=== PATIENT | female | born 1980 | race American Indian/Alaskan Native ===

== ENCOUNTER 2018-04-02 21:44 | Emergency (ER) | payer SELFPAY ==
[2018-04-02 22:48] LABS: Basophils % (Auto) 0.5 % (0.0-1.8); Eosinophils % (Auto) 0.2 % (0.0-4.3); Hematocrit 38.3 % (30.3-42.9); Hemoglobin 12.5 gm/dl (10.1-14.3); Lymphocytes # (Auto) 2.2 K/mm3 (1.2-5.4); Lymphocytes % (Auto) 21.6 % (13.4-35.0); Mean Corpuscular HGB Conc 33 % (30-34); Mean Corpuscular Hemoglobin 27 pg (28-32); Mean Corpuscular Volume 84 fl (79-97); Monocytes # (Auto) 0.5 K/mm3 (0.0-0.8); Monocytes % (Auto) 5.1 % (0.0-7.3); Platelet Count 330 K/mm3 (140-440); Red Blood Count 4.59 M/mm3 (3.65-5.03); Red Cell Distribution Width 16.9 % (13.2-15.2)
[2018-04-02 22:55] LABS: Bilirubin,Urine NEG (Negative); Blood,Urine LG (Negative); Color,Urine Yellow (Yellow); Mucus,Urine FEW /HPF; Protein,Urine <15 mg/dL mg/dL (Negative); Urobilinogen,Urine < 2.0 mg/dL (<2.0)
--- NOTE | 2018-04-03 01:04 | Emergency Department Report ---
ED Female HPI - General Chief complaint: Vaginal Bleeding Stated complaint: VAG BLEEDING; 6WKS GEST Time Seen by Provider: 04/03/18 00:09 Source: patient, family Mode of arrival: Ambulatory Limitations: No Limitations - History of Present Illness Initial comments: Ms. Robles is a very pleasant with approximately 6 weeks . Last menstrual period 02/16/2018. She discovered through home test 2 days ago that she was . She had vaginal spotting on yesterday. She has had continued vaginal bleeding slightly heavier. She had pelvic pressure and cramping. 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 One vaginal delivery. One C- section. She is here with her fianc who is at the bedside. MD Complaint: vaginal bleeding -: Gradual, days(s) (1) Severity scale (0 -10): 3 Quality: cramping Consistency: constant Improves with: none Worsens with: none Are you Now?: Yes Associated Symptoms: abdominal pain, other (pelvic pressure) - Related Data Allergies Allergy/AdvReac Type Severity Reaction Status Date / Time No Known Allergies Allergy Verified 04/02/18 21:55 ED Review of Systems ROS: Stated complaint: VAG BLEEDING; 6WKS GEST Other details as noted in HPI Comment: All other systems reviewed and negative Constitutional: denies: fever, malaise Respiratory: denies: cough Cardiovascular: denies: chest pain ED Past Medical Hx - Past Medical History Previous Medical History?: No - Surgical History Past Surgical History?: Yes Additional Surgical History: c section - Social History Smoking Status: Former Smoker Substance Use Type: None ED Physical Exam - General Limitations: No Limitations General appearance: alert, in no apparent distress - Head Head exam: Present: atraumatic, normocephalic - Eye Eye exam: Present: normal appearance. Absent: scleral icterus, conjunctival injection - ENT ENT exam: Present: mucous membranes moist - Neck Neck exam: Present: normal inspection. Absent: tenderness, meningismus - Respiratory Respiratory exam: Present: normal lung sounds bilaterally. Absent: respiratory distress, wheezes, rales, rhonchi - Cardiovascular Cardiovascular Exam: Present: regular rate, normal rhythm, normal heart sounds. Absent: systolic murmur, diastolic murmur, rubs, gallop - GI/Abdominal GI/Abdominal exam: Present: soft, normal bowel sounds. Absent: distended, tenderness, rebound - Extremities Exam Extremities exam: Present: normal inspection - Back Exam Back exam: Present: normal inspection - Neurological Exam Neurological exam: Present: alert, oriented X3 - Psychiatric Psychiatric exam: Present: normal affect, normal mood - Skin Skin exam: Present: warm, dry, intact, normal color. Absent: rash ED Course Vital Signs 04/02/18 21:55 Temperature 98.6 F Pulse Rate 89 Respiratory 16 Rate Blood Pressure 137/92 O2 Sat by Pulse 97 Oximetry ED Medical Decision Making - Lab Data Result diagrams: 04/02/18 22:25 Laboratory Results - last 24 hr 04/02/18 04/02/18 04/02/18 22:25 22:25 22:25 WBC 10.4 RBC 4.59 Hgb 12.5 Hct 38.3 MCV 84 MCH 27 L MCHC 33 RDW 16.9 H Plt Count 330 Lymph % (Auto) 21.6 Gem % (Auto) 5.1 Eos % (Auto) 0.2 Baso % (Auto) 0.5 Lymph # 2.2 Gem # 0.5 Eos # 0.0 Baso # 0.0 Seg Neutrophils % 72.6 H Seg Neutrophils # 7.6 HCG, Quant 4769 H Urine Color Urine Turbidity Urine pH Ur Specific [place] Urine Protein Urine Glucose (UA) Urine Ketones Urine Blood Urine Nitrite Urine Bilirubin Urine Urobilinogen Ur Leukocyte Esterase Urine WBC (Auto) Urine RBC (Auto) U Epithel Cells (Auto) Urine Mucus Blood Type O POSITIVE Antibody Screen Negative 04/02/18 Unknown WBC RBC Hgb Hct MCV MCH MCHC RDW Plt Count Lymph % (Auto) Gem % (Auto) Eos % (Auto) Baso % (Auto) Lymph # Gem # Eos # Baso # Seg Neutrophils % Seg Neutrophils # HCG, Quant Urine Color Yellow Urine Turbidity Clear Urine pH 6.0 Ur Specific [place] 1.012 Urine Protein <15 mg/dl Urine Glucose (UA) Neg Urine Ketones 20 Urine Blood Lg Urine Nitrite Neg Urine Bilirubin Neg Urine Urobilinogen < 2.0 Ur Leukocyte Esterase Neg Urine WBC (Auto) 2.0 Urine RBC (Auto) 6.0 U Epithel Cells (Auto) 3.0 Urine Mucus Few Blood Type Antibody Screen Vital Signs - 24 hr 04/02/18 21:55 Temperature 98.6 F Pulse Rate 89 Respiratory 16 Rate Blood Pressure 137/92 O2 Sat by Pulse 97 Oximetry - Radiology Data Radiology results: report reviewed no IUP - Medical Decision Making Ms. Robles presents with threatened miscarriage vs complete vs early IUP vs ectopic. Rh negative. She is currently taking PVN with folic acid. I recommended return in 2 days for repeat US and HCG Critical care attestation.: If time is entered above; I have spent that time in minutes in the direct care of this critically ill patient, excluding procedure time. ED Disposition Clinical Impression: Threatened miscarriage in early Disposition: DC- TO HOME OR SELFCARE Is pt being admited?: No Does the pt Need Aspirin: No Condition: Stable Instructions: Threatened Miscarriage (ED) Additional Instructions: Please return in 2 days for repeat US and blood test. Time of Disposition: 01:25
--- NOTE | 2018-04-03 01:17 | Ultrasound Report ---
FINAL REPORT EXAM: US OB < = 14 WEEKS FETUS HISTORY: preg, vag bleeding COMPARISON: None available. TECHNIQUE: Several real-time grayscale and color Doppler images were obtained. Transabdominal and transvaginal exam. FINDINGS: The uterus measures 10.9 x 4.7 x 5.0 centimeters. Endometrial stripe measures 14 millimeters. At the anterior body of the lower uterus there is a 1.2 x 0.8 x 1.0 centimeter isoechoic structure with small focus of calcification compatible fibroid. No IUP or adnexal masses are demonstrated. Right ovary measures 3.8 x 2.2 x 2.6 centimeters. Left ovary measures 2.6 x 1.1 x 3.0 centimeters. Within the right ovary there is a mildly complex cystic structure measuring 1.6 x 2.0 x 1.7 centimeters. This may reflect corpus luteum. 1.1 centimeter left ovarian cystic structure. IMPRESSION: No IUP or adnexal masses are demonstrated. Findings could reflect completed . Early live IUP not excluded. Correlation with serial beta HCGs and followup exam is suggested. 2.0 centimeter complex cystic structure in the right ovary which may reflect corpus luteum.
[2018-04-03 02:07] VITALS: BP 132/81
== END 2018-04-03 02:07 | disposition home or self-care (01) ==
LOC: ED 21:44
DX: O20.0 Threatened abortion (principal); Z3A.01 Less than 8 weeks gestation of pregnancy; Z87.891 Personal history of nicotine dependence
CPT/HCPCS: 36415; 76801; 76817; 81001; 84702; 85025; 86850; 86900; 86901; 99284

== ENCOUNTER 2018-04-05 16:07 | Emergency (ER) | payer SELFPAY ==
[2018-04-05 16:40] VITALS: BP 138/88
--- NOTE | 2018-04-05 22:17 | Emergency Department Report ---
ED Medical Clearance HPI - General Chief complaint: Medical Clearance Stated complaint: FOLLOW/UP/ Time Seen by Provider: 04/05/18 21:38 Source: patient Mode of arrival: Ambulatory - History of Present Illness Initial comments: 37-year-old -[place] female returns back to the emergency room as suggested to have her hCG repeated. Patient was seen on Friday04/03/2018 and had a ultrasound in hCG testing for having some vaginal bleeding and abdominal pain. Patient is a correction of her last menstrual period was 02/20/2018. Patient's is having no concerns at this time Allergies/Adverse reactions: Allergies Allergy/AdvReac Type Severity Reaction Status Date / Time No Known Allergies Allergy Verified 04/05/18 16:38 ED Review of Systems ROS: Stated complaint: FOLLOW/UP/ Other details as noted in HPI ED Past Medical Hx - Past Medical History Previous Medical History?: No - Surgical History Additional Surgical History: c section - Social History Smoking Status: Former Smoker Substance Use Type: None ED Physical Exam - General Limitations: No Limitations ED Course Vital Signs 04/05/18 16:38 Temperature 98.8 F Pulse Rate 66 Respiratory 18 Rate Blood Pressure 138/88 O2 Sat by Pulse 99 Oximetry ED Medical Decision Making - Medical Decision Making Patient was evaluated by this provider fast track. Discussed with patient that her numbers have doubled for her hormonal levels. Discussed patient that this is most likely early and that she needs to follow up with the [facility] provider. Discussed the patient that I will refer her to either sliding [facility] in [place] which is where they live near. Patient was very thankful for further results. ED Disposition Clinical Impression: Early stage of Disposition: DC-01 TO HOME OR SELFCARE Is pt being admited?: No Does the pt Need Aspirin: No Condition: Stable Additional Instructions: Please follow-up with [facility] Referrals: PRIMARY CARE, [Primary Care Provider] - 3-5 Days
== END 2018-04-05 21:48 | disposition home or self-care (01) ==
LOC: ED 16:07
DX: O26.891 Other specified pregnancy related conditions, first trimester (principal); R10.2 Pelvic and perineal pain; O20.9 Hemorrhage in early pregnancy, unspecified; Z3A.01 Less than 8 weeks gestation of pregnancy; Z87.891 Personal history of nicotine dependence
CPT/HCPCS: 36415; 84702; 99283

== ENCOUNTER 2018-05-02 23:08 | Emergency (ER) | payer SELFPAY ==
[2018-05-03 02:27] LABS: Hematocrit 36.1 % (30.3-42.9); Hemoglobin 12.1 gm/dl (10.1-14.3); Mean Corpuscular HGB Conc 34 % (30-34); Mean Corpuscular Hemoglobin 29 pg (28-32); Mean Corpuscular Volume 86 fl (79-97); Platelet Count 321 K/mm3 (140-440); Red Blood Count 4.19 M/mm3 (3.65-5.03); Red Cell Distribution Width 17.6 % (13.2-15.2)
[2018-05-03 02:33] LABS: BUN/Creatinine Ratio 13; Blood Urea Nitrogen 5 mg/dL (7-17); Calcium 9.2 mg/dL (8.4-10.2); Hemolysis Index 0
--- NOTE | 2018-05-03 03:23 | Ultrasound Report ---
FINAL REPORT EXAM: US OB < = 14 WEEKS FETUS HISTORY: Vaginal Bleeding 10 weeks TECHNIQUE: Transabdominal imaging was obtained of the pelvis. FINDINGS: The uterus measures 14.2 cm by 5.3 cm x 5.5 cm. The endometrial thickness is 23.8 mm and is heterogeneous. There is no evidence of an intrauterine gestational sac or embryo. There is minimal free fluid in the cul-de-sac. The right ovary is enlarged measuring 6.1 cm x 4.1 cm x 4.1 cm. Within the right ovary is a complex cyst with septations measuring to 2.8 cm in diameter. A gestational sac is not seen. The left ovary is normal size contour and echotexture measuring 2.7 cm by 2.6 cm x 1.6 cm. IMPRESSION: No evidence of an IUP at this time. Thickened endometrium with heterogeneous echotexture. The findings may be on the basis of retained products of conception. Obtaining follow-up serum beta HCG levels is recommended for confirmation. Complex right ovarian cyst with septations measuring 2.8 cm in diameter. Normal-appearing left ovary. Minimal free fluid the pelvis.
--- NOTE | 2018-05-03 03:24 | Ultrasound Report ---
FINAL REPORT EXAM: US OB TRANSVAGINAL HISTORY: Vaginal Bleeding 10 weeks TECHNIQUE: Transvaginal imaging was obtained the pelvis. FINDINGS: The uterus measures 4.2 cm x 5.3 cm x 5.5 cm. The endometrial thickness is 23.8 mm and is heterogeneous. An intrauterine gestational sac and embryo is not seen. There is minimal free fluid in the pelvis. The right ovary is enlarged measuring 6.1 cm x 4.1 cm x 4.1 cm. There is a complex right ovarian cyst with septations measure up to 2.8 cm in diameter. The left ovary is normal in size contour and echotexture measuring 2.7 cm x 2.6 cm x 1.6 cm. IMPRESSION: No evidence of an IUP at this time. Thickened endometrium with heterogeneous echotexture. The findings may represent retained products of conception. Obtaining follow-up beta HCG levels is recommended for confirmation. Enlarged right ovary with complex ovarian cyst with measurements as described. Normal-appearing left ovary.
--- NOTE | 2018-05-03 04:21 | Emergency Department Report ---
ED HPI - General Chief complaint: Vaginal Bleeding Stated complaint: BLOOD CLOT 10 WEEKS Time Seen by Provider: 05/03/18 04:14 Source: patient Mode of arrival: Ambulatory Limitations: No Limitations - History of Present Illness Initial comments: Patient is a 37-year-old female that presents emergency room with vaginal bleeding and passing of tissue and clots. Patient states that she is having mild cramps and mild pelvic pressure at a 3 out of 10. Patient states the pain is nonradiating. Patient is currently 10 weeks and has not had any care. Patient is a . Patient states she has had 2 miscarriages in the past and states the symptoms are similar to her previous miscarriages. Patient states she has been bleeding since 5 weeks. Patient states she was evaluated here for vaginal bleeding and instructed to see OR ASSISTANT but never went to see an OR ASSISTANT for care. Patient states this time is that of just normal spotting and bleeding like in the past she has no passing clots and tissue. Patient states she was seen here for her beta hCG checks and that her beta having going up. Patient denies other physical symptoms. Patient denies chest pain. Patient denies shortness of breath. Patient denies fever and chills. MD Complaint: vaginal bleeding -: Sudden Location: pelvis Radiation: none Severity: mild Severity scale (0 -10): 3 Quality: dull, other (pressure pressure) Consistency: constant Improves with: none Worsens with: none Associated symptoms: vaginal bleeding. denies: nausea/vomiting, vaginal discharge, dysuria, headache, vision changes, malaise, dysparuenia, rash, seizure, shortness of breath, syncope, weakness Vaginal bleeding: clots :: Yes OB History - Previous Pregnancies: miscarriage Pre- care: none - Related Data Allergies Allergy/AdvReac Type Severity Reaction Status Date / Time No Known Allergies Allergy Verified 04/05/18 16:38 ED Review of Systems ROS: Stated complaint: BLOOD CLOT 10 WEEKS Other details as noted in HPI Constitutional: denies: chills, fever Eyes: denies: eye pain, eye discharge, vision change ENT: denies: ear pain, throat pain Respiratory: denies: cough, shortness of breath, wheezing Cardiovascular: denies: chest pain, palpitations Endocrine: no symptoms reported Gastrointestinal: denies: abdominal pain, nausea, diarrhea Genitourinary: denies: urgency, dysuria, discharge Musculoskeletal: denies: back pain, joint swelling, arthralgia Skin: denies: rash, lesions Neurological: denies: headache, weakness, paresthesias Psychiatric: denies: anxiety, depression Hematological/Lymphatic: denies: easy bleeding, easy bruising ED Past Medical Hx - Past Medical History Previous Medical History?: No - Surgical History Past Surgical History?: Yes Additional Surgical History: c section, Miscarriages x 2 - Family History Family history: no significant - Social History Smoking Status: Former Smoker Substance Use Type: None ED Physical Exam - General Limitations: No Limitations General appearance: alert, in no apparent distress - Head Head exam: Present: atraumatic, normocephalic - Eye Eye exam: Present: normal appearance - ENT ENT exam: Present: mucous membranes moist - Neck Neck exam: Present: normal inspection - Respiratory Respiratory exam: Present: normal lung sounds bilaterally. Absent: respiratory distress - Cardiovascular Cardiovascular Exam: Present: regular rate, normal rhythm. Absent: systolic murmur, diastolic murmur, rubs, gallop - GI/Abdominal GI/Abdominal exam: Present: soft, normal bowel sounds - Extremities Exam Extremities exam: Present: normal inspection - Back Exam Back exam: Present: normal inspection - Neurological Exam Neurological exam: Present: alert, oriented X3 - Psychiatric Psychiatric exam: Present: normal affect, normal mood - Skin Skin exam: Present: warm, dry, intact, normal color. Absent: rash ED Course Vital Signs 05/03/18 05/03/18 05/03/18 01:17 03:51 04:43 Temperature 99.2 F 98.9 F Pulse Rate 84 69 Respiratory 20 20 20 Rate Blood Pressure 172/97 Blood Pressure 133/98 [Left] O2 Sat by Pulse 100 98 98 Oximetry - Reevaluation(s) Reevaluation #1: Discussed all results with patient. 05/03/18 04:22 Reevaluation #2: Discussed all results with patient. Discussed plan of admission with patient. Patient agrees with plan of care and admission. 05/03/18 05:37 - Consultations Consultation #1: Discussed case with Dr. Castaneda, OR ASSISTANT. Dr. Castaneda agrees to admit patient and take patient for a D&C. Dr. Castaneda to assume care. Patient to remain nothing by mouth 05/03/18 05:30 ED Medical Decision Making - Lab Data Result diagrams: 05/03/18 01:48 05/03/18 01:48 - Radiology Data Radiology results: report reviewed FINAL REPORT EXAM: US OB TRANSVAGINAL HISTORY: Vaginal Bleeding 10 weeks TECHNIQUE: Transvaginal imaging was obtained the pelvis. FINDINGS: The uterus measures 4.2 cm x 5.3 cm x 5.5 cm. The endometrial thickness is 23.8 mm and is heterogeneous. An intrauterine gestational sac and embryo is not seen. There is minimal free fluid in the pelvis. The right ovary is enlarged measuring 6.1 cm x 4.1 cm x 4.1 cm. There is a complex right ovarian cyst with septations measure up to 2.8 cm in diameter. The left ovary is normal in size contour and echotexture measuring 2.7 cm x 2.6 cm x 1.6 cm. IMPRESSION: No evidence of an IUP at this time. Thickened endometrium with heterogeneous echotexture. The findings may represent retained products of conception. Obtaining follow-up beta HCG levels is recommended for confirmation. Enlarged right ovary with complex ovarian cyst with measurements as described. Normal-appearing left ovary. Transcribed By: RB Dictated By: MANOHAR MANDEL MD Electronically Authenticated By: MANOHAR MANDEL MD Signed Date /Time: 05/03/18 0320 - Medical Decision Making Patient is a 37-year-old female presents to emergency room for pelvic pressure and vaginal bleeding and passing of clots and tissue. Patient to be admitted to Dr. Castaneda, OR ASSISTANT for further evaluation and treatment. Dr. Castaneda stated she planned on taking the patient for a D&C and will admit the patient. - Differential Diagnosis ectopic. Miscarriage. Retained products of conception. Pelvic pressure, Critical care attestation.: If time is entered above; I have spent that time in minutes in the direct care of this critically ill patient, excluding procedure time. ED Disposition Clinical Impression: Vaginal bleeding, Thickened endometrium, Pelvic pressure in female Qualifiers: Weeks of gestation: 10 weeks Qualified Code(s): Z3A.10 - 10 weeks gestation of Disposition: OP ADMIT IP TO THIS HOSP Is pt being admited?: Yes Does the pt Need Aspirin: No Condition: Serious Time of Disposition: 05:45
[2018-05-03 04:37] LABS: Bacteria,Urine 1+ /HPF (Negative); Bilirubin,Urine NEG (Negative); Blood,Urine LG (Negative); Calcium Oxalate Crystals,Urine 3+; Color,Urine Yellow (Yellow); Mucus,Urine FEW /HPF; Sperm,Urine FEW /HPF (NP); Urobilinogen,Urine < 2.0 mg/dL (<2.0)
[2018-05-03 04:40] LABS: RBC,Urine > 182.0 /HPF (0.0-6.0)
[2018-05-03 04:43] VITALS: BP 133/98
--- NOTE | 2018-05-03 06:57 | Event Note ---
Date: 05/03/18 On-call SUPPLY REQUIREMENTS OFFICER consulted in this patient with vaginal bleeding with plans for suction dilation and curettage. Prior to my arrival to speak with the patient, she left the unit. Multiple attempts to contact her by phone have been unsuccessful. If she returns to the ED, the patient remains unassigned and the on-call SUPPLY REQUIREMENTS OFFICER at that time should be consulted.
== END 2018-05-03 07:46 | disposition admitted as inpatient to this hospital (09) ==
LOC: ED 23:08
DX: O20.9 Hemorrhage in early pregnancy, unspecified (principal); R93.8 Abnormal findings on diagnostic imaging of other specified body structures; R10.2 Pelvic and perineal pain; Z3A.10 10 weeks gestation of pregnancy; Z87.891 Personal history of nicotine dependence
CPT/HCPCS: 36415; 76801; 76817; 80048; 81001; 84702; 85027; 86850; 86900; 86901

== ENCOUNTER 2018-05-04 22:59 | Observation (INO) | payer OTHER ==
[2018-05-05] MEDS ORDERED: MARCAINE 0.5% INFILTRATI ONE ×2
[2018-05-05] MEDS ORDERED: NACL 0.9% IR ONE
[2018-05-05 03:49] LABS: Basophils # (Auto) 0.1 K/mm3 (0.0-0.1); Basophils % (Auto) 0.7 % (0.0-1.8); Eosinophils # (Auto) 0.1 K/mm3 (0.0-0.4); Eosinophils % (Auto) 0.6 % (0.0-4.3); Lymphocytes # (Auto) 2.9 K/mm3 (1.2-5.4); Lymphocytes % (Auto) 23.4 % (13.4-35.0); Mean Corpuscular HGB Conc 33 % (30-34); Mean Corpuscular Hemoglobin 29 pg (28-32); Mean Corpuscular Volume 86 fl (79-97); Monocytes # (Auto) 0.8 K/mm3 (0.0-0.8); Monocytes % (Auto) 6.7 % (0.0-7.3); Platelet Count 343 K/mm3 (140-440); Red Blood Count 4.19 M/mm3 (3.65-5.03); Red Cell Distribution Width 17.4 % (13.2-15.2)
[2018-05-05 04:00] LABS: BUN/Creatinine Ratio 14; Blood Urea Nitrogen 7 mg/dL (7-17); Calcium 9.4 mg/dL (8.4-10.2); Hemolysis Index 1
[2018-05-05 08:31] LABS: Bilirubin,Urine NEG (Negative); Blood,Urine LG (Negative); Calcium Oxalate Crystals,Urine 3+; Color,Urine Yellow (Yellow); Mucus,Urine 3+ /HPF; RBC,Urine > 182.0 /HPF (0.0-6.0)
--- NOTE | 2018-05-05 08:53 | Ultrasound Report ---
Pelvic and transvaginal sonography: History vaginal bleeding. Findings: Uterus measures 13.1 x 5.2 x 5.9 cm endometrial thickness 25 mm. No intrauterine gestation is noted. There is complex mass identified at the right ovary with fluid surrounding what appears to be yolk sac. Impression: No intrauterine gestation. Findings in the right adnexa suggestive of ectopic gestation.
[2018-05-05] MEDS ORDERED: NACL 0.9% 1000 ML 1,000 ML IV ONE (09:21)
[2018-05-05] MEDS ORDERED: MARCAINE 0.5% 30 ML INFILTRATI ONE (09:37)
--- NOTE | 2018-05-05 09:38 | Emergency Department Report ---
ED General Adult HPI - General Chief complaint: Vaginal Bleeding Stated complaint: DNC AFTER MISCARRIAGE Time Seen by Provider: 05/05/18 08:58 Source: patient Mode of arrival: Ambulatory Limitations: No Limitations - History of Present Illness Initial comments: This is a 37-year-old female who arrives fully ambulatory to this emergency department last night. She was hemodynamically stable. She is placed in the waiting room. She had her workup expedited by protocol. I first learned of her presence when the radiologist notified me of her ultrasound report. It was indicative of a ruptured right adnexal ectopic . Nurses were instructed to bring the patient back immediately to a treatment area. She had been typed and screened already. I ordered IV fluids and a coagulation profile. I informed the nursing staff that she should be prepared for the OR. I spoke to Dr. Gilda Castaneda who agreed that the patient would be taken directly to the operating room I presume for laparoscopic surgery. The patient was here 2 days ago but left on 05/03/2018 without seeing her gre tutor was actually construction teacher as she is today (Dr. Castaneda). Essentially the patient eloped. This morning she had the onset of what she described as significant vaginal bleeding. She does not describe substantial abdominal pain at this time. However she has had pelvic discomfort. She denies syncope or substantial current weakness. Patient states that she's had one miscarriage and one apparent ectopic that was successfully treated with methotrexate. She has to live children and this is her fifth . -: days(s) Location: abdomen Radiation: non-radiation Quality: aching Consistency: intermittent Improves with: none Worsens with: none Associated Symptoms: other Treatments Prior to Arrival: none (vaginal bleeding) - Related Data Allergies Allergy/AdvReac Type Severity Reaction Status Date / Time No Known Allergies Allergy Verified 04/05/18 16:38 ED Review of Systems ROS: Stated complaint: DNC AFTER MISCARRIAGE Other details as noted in HPI Constitutional: denies: chills, fever Eyes: denies: eye pain, eye discharge, vision change ENT: denies: ear pain, throat pain Respiratory: denies: cough, shortness of breath, wheezing Cardiovascular: denies: chest pain, palpitations Endocrine: no symptoms reported Gastrointestinal: abdominal pain. denies: nausea, diarrhea Genitourinary: as per HPI. denies: urgency, dysuria, discharge Musculoskeletal: denies: back pain, joint swelling, arthralgia Skin: denies: rash, lesions Neurological: denies: headache, weakness, paresthesias Psychiatric: denies: anxiety, depression Hematological/Lymphatic: denies: easy bleeding, easy bruising ED Past Medical Hx - Past Medical History Previous Medical History?: No - Surgical History Additional Surgical History: c section, Miscarriages x 2 - Social History Smoking Status: Never Smoker Substance Use Type: None ED Physical Exam - General Limitations: No Limitations General appearance: alert, in no apparent distress, obese - Head Head exam: Present: atraumatic, normocephalic - Eye Eye exam: Present: normal appearance - ENT ENT exam: Present: mucous membranes moist - Neck Neck exam: Present: normal inspection. Absent: tenderness, meningismus - Respiratory Respiratory exam: Present: normal lung sounds bilaterally. Absent: respiratory distress - Cardiovascular Cardiovascular Exam: Present: regular rate, normal rhythm. Absent: systolic murmur, diastolic murmur, rubs, gallop - GI/Abdominal GI/Abdominal exam: Present: soft, tenderness (very minimal), normal bowel sounds. Absent: distended, guarding, rebound, rigid - Extremities Exam Extremities exam: Present: normal inspection - Back Exam Back exam: Present: normal inspection - Neurological Exam Neurological exam: Present: alert, oriented X3 - Psychiatric Psychiatric exam: Present: normal affect, normal mood - Skin Skin exam: Present: warm, dry, intact, normal color. Absent: rash ED Course - Reevaluation(s) Reevaluation #1: Patient's care was expedited to the operating room. Dr. Castaneda is seeing the patient now. 05/05/18 09:40 ED Medical Decision Making - Lab Data Result diagrams: 05/05/18 03:30 05/05/18 03:30 Laboratory Results - last 24 hr 05/05/18 05/05/18 05/05/18 03:25 03:30 03:30 WBC 12.3 H RBC 4.19 Hgb 12.0 Hct 36.0 MCV 86 MCH 29 MCHC 33 RDW 17.4 H Plt Count 343 Lymph % (Auto) 23.4 Warrick % (Auto) 6.7 Eos % (Auto) 0.6 Baso % (Auto) 0.7 Lymph # 2.9 Warrick # 0.8 Eos # 0.1 Baso # 0.1 Seg Neutrophils % 68.6 Seg Neutrophils # 8.4 H Sodium Potassium Chloride Carbon Dioxide Anion Gap BUN Creatinine Estimated GFR BUN/Creatinine Ratio Glucose Calcium HCG, Quant 50126 H Urine Color Urine Turbidity Urine pH Ur Specific Alston Urine Protein Urine Glucose (UA) Urine Ketones Urine Blood Urine Nitrite Urine Bilirubin Urine Urobilinogen Ur Leukocyte Esterase Urine WBC (Auto) Urine RBC (Auto) U Epithel Cells (Auto) Calcium Oxalate Crystal Urine Mucus Blood Type O POSITIVE Antibody Screen Negative 05/05/18 05/05/18 03:30 07:58 WBC RBC Hgb Hct MCV MCH MCHC RDW Plt Count Lymph % (Auto) Warrick % (Auto) Eos % (Auto) Baso % (Auto) Lymph # Warrick # Eos # Baso # Seg Neutrophils % Seg Neutrophils # Sodium 137 Potassium 3.8 Chloride 99.4 Carbon Dioxide 23 Anion Gap 18 BUN 7 Creatinine 0.5 L Estimated GFR > 60 BUN/Creatinine Ratio 14 Glucose 97 Calcium 9.4 HCG, Quant Urine Color Yellow Urine Turbidity Clear Urine pH 6.0 Ur Specific Alston 1.028 Urine Protein 100 mg/dl Urine Glucose (UA) Neg Urine Ketones Neg Urine Blood Lg Urine Nitrite Neg Urine Bilirubin Neg Urine Urobilinogen 2.0 Ur Leukocyte Esterase Tr Urine WBC (Auto) 8.0 H Urine RBC (Auto) > 182.0 U Epithel Cells (Auto) 2.0 Calcium Oxalate Crystal 3+ Urine Mucus 3+ Blood Type Antibody Screen - Radiology Data Radiology results: report reviewed (ultrasound was consistent with right adnexal complex mass with yolk sac and free pelvic fluid plus diagnostic of a leaking ectopic ) Critical Care Time: Yes Critical care time in (mins) excluding proc time.: 60 Critical care attestation.: If time is entered above; I have spent that time in minutes in the direct care of this critically ill patient, excluding procedure time. ED Disposition Clinical Impression: Ruptured ectopic Disposition: OP ADMIT IP TO THIS HOSP Is pt being admited?: Yes Does the pt Need Aspirin: No Condition: Stable Referrals: PRIMARY CARE, [Primary Care Provider] - 3-5 Days Time of Disposition: 09:41
[2018-05-05] MEDS ORDERED: ACD-A 500 ML IV ONE (09:50)
[2018-05-05] MEDS ORDERED: XYLOCAINE MPF 2% ONE (10:00)
[2018-05-05] MEDS ORDERED: ZEMURON IV ONE (10:00)
[2018-05-05] MEDS ORDERED: SUBLIMAZE ONE (10:01)
[2018-05-05] MEDS ORDERED: DIPRIVAN 10 MG/ML IV ONE (10:01)
--- NOTE | 2018-05-05 10:13 | History and Physical Report ---
History of Present Illness Date of examination: 05/05/18 Chief complaint: , bleeding, abdominal pain History of present illness: Pt is 37 year old female LMP 02/19/18 at 10w5d by LMP who presents with five weeks of intermittent vaginal bleeding with an increase with heavy clots and severe abdominal pain two days ago. She has had three previous visits in ED for vaginal bleeding during the . Initially her HCGs were followed for appropriate rise. She then presented on 05/02/18 with vaginal bleeding with HCG 38 ,524, no evidence of IUP, Enlarged right ovary 6.1x4.1x4.1 cm with complex right ovarian cyst with septations measuring 2.8 cm in diameter. Minimal freee fluid in pelvis. At that time, the patient was scheduled to have a dilation and curettage with dose of methotrexate but she left the ED to care for her children. She presented again this hospitalization complaining of pelvic pain and increased vaginal bleeding with clots. Ultrasound this morning shows a uterus measuring 13.1 x 5.2x 5.9 cm with an EMS 25 mm. No IUP. "Complex mass identified at the right ovary with fluid surrounding what appears to be a yolk sac." "Findings in right adnexa suggestive of ectopic gestation." Of note, the patient reports two previous ectopic pregnancies treated with methotrexate. Past History Past Medical History: no pertinent history Past Surgical History: section Social history: , smoking (former, quit 2 months ago ) - Obstetrical History Expected Date of Delivery: 11/26/18 Actual Gestation: 10 Week(s) 5 Day(s) : 5 Para: 2 Hx # Term Pregnancies: 2 Number of Pregnancies: 0 Spontaneous Abortions: 2 (2 ectopic pregnancies ) Induced : 0 Number of Living Children: 2 Medications and Allergies Allergies Allergy/AdvReac Type Severity Reaction Status Date / Time No Known Allergies Allergy Verified 05/05/18 09:44 Active Meds: Active Medications Sodium Chloride (Nacl 0.9% 1000 Ml) 1,000 mls @ 999 mls/hr IV BOLUS ONE Stop: 05/05/18 10:21 Last Admin: 05/05/18 09:48 Dose: 999 mls/hr Review of Systems All systems: negative - Physical Exam Abdomen: Positive: soft, tenderness (moderate ) Extremities: Positive: normal Results Result Diagrams: 05/05/18 03:30 05/05/18 03:30 Abnormal lab results 05/05/18 05/05/18 05/05/18 Range/Units 03:30 03:30 03:30 WBC 12.3 H (4.5-11.0) K/mm3 RDW 17.4 H (13.2-15.2) % Seg Neutrophils # 8.4 H (1.8-7.7) K/mm3 Creatinine 0.5 L (0.7-1.2) mg/dL HCG, Quant 03936 H (0-4) mIU/mL Urine WBC (Auto) (0.0-6.0) /HPF 05/05/18 Range/Units 07:58 WBC (4.5-11.0) K/mm3 RDW (13.2-15.2) % Seg Neutrophils # (1.8-7.7) K/mm3 Creatinine (0.7-1.2) mg/dL HCG, Quant (0-4) mIU/mL Urine WBC (Auto) 8.0 H (0.0-6.0) /HPF All other labs normal. Assessment and Plan A: Concern for right ectopic Pelvic Pain Vaginal Bleeding Tobacco Use H/o 2 previous ectopics P: Proceed with laparoscopy, possible right salpingectomy, dilation and curettage and other indicated procedures.
[2018-05-05 10:17] LABS: INR 1.04 (0.87-1.13)
[2018-05-05 10:18] LABS: Alanine Aminotransferase 9 units/L (7-56); Albumin 3.9 g/dL (3.9-5); Partial Thromboplastin Time 31.1 Sec. (24.2-36.6)
[2018-05-05 10:26] LABS: Bilirubin,Direct < 0.2 mg/dL (0-0.2)
[2018-05-05] MEDS ORDERED: ANCEF/STERILE WATER 2 GM/20 ML 2 GM/20 ML SYRINGE IV NR ×2 (10:30→15:14)
--- NOTE | 2018-05-05 10:33 | Anesthesia Day of Surgery ---
Anesthesia Day of Surgery - Day of Surgery Patient Examined: Yes Patient H&P Reviewed: Yes Patient is NPO: Yes
--- NOTE | 2018-05-05 10:33 | Anesthesia Consultation ---
Anesthesia Consult and Med Hx Date of service: 05/05/18 - Airway Anesthetic Teeth Evaluation: Good ROM Head & Neck: Adequate Mental/Hyoid Distance: Adequate Mallampati Class: Class II Intubation Access Assessment: Probably Good - Pre-Operative Health Status ASA Pre-Surgery Classification: ASA2, Emergency Proposed Anesthetic Plan: General - Pulmonary Hx Smoking: Yes - Other Systems Hx Obesity: Yes (BMI 36.0)
[2018-05-05] MEDS ORDERED: LACTATED RINGERS 1,000 ML IV SCH ×4 (11:00→15:14)
[2018-05-05] MEDS ORDERED: ZOFRAN ONE (12:08)
[2018-05-05] MEDS ORDERED: DILAUDID ONE ×2 (12:08→14:03)
[2018-05-05] MEDS ORDERED: TORADOL ONE (12:08)
[2018-05-05] MEDS ORDERED: DECADRON ONE (12:09)
[2018-05-05] MEDS ORDERED: ROBINUL ONE (12:09)
[2018-05-05] MEDS ORDERED: BLOXIVERZ ONE (12:09)
--- NOTE | 2018-05-05 12:40 | Operative Report ---
Operative Report Operative Report: Date of procedure: May 05, 2018 Preoperative diagnosis: 1) Suspected right ectopic 2) Vaginal Bleeding 3) Pelvic Pain 4) Obesity Postoperative diagnosis: Same Procedure: 1) Laparoscopic right salpingetomy with excision of ectopic 2) Dilation and Curettage Surgeon: Bella Castaneda M.D. Professor/Nurse Anesthetist: Mikayla Lee MD Anesthesia: General endotracheal anesthesia Findings: 1) 12-14 wk sized anteverted uterus 2) Severe adhesive disease between the anterior surface of the uterus and the parietal peritoneum 3) Right ectopic within the right fallopian tube, unruptured 4) Normal appearing ovaries bilaterally Estimated blood loss: 50 mL IV fluid: 1000 mL Urine output: 250 mL clear at the end of the procedure Specimens: Right fallopian tube with ectopic and endometrial curettings to pathology Complications: None. Counts correct 2 Disposition: Stable to PACU Indications for procedure: Pt is a 37 year old female at 10 wks by LMP and with a h/o two previous ectopic pregnancies presents with vaginal bleeding and pelvic pain as well as a complex mass in the right adnexae consistent with an ectopic . Pt desires to proceed with surgical management. Operation in detail: After the risks, benefits, alternatives and complications of the procedure were explained to the patient, she gave informed consent for the procedure. She was subsequently taken to the operating room with her IV noted to be running and placed in the dorsal supine position with sequential compression devices functioning. General endotracheal anesthesia was then induced without difficulty. The patient was then placed in dorsal lithotomy position and prepped and draped in normal sterile fashion. A timeout was then performed. An exam under anesthesia was then performed yielding a 12-14 wk sized anteverted uterus. A alanis catheter was then placed. An open sided speculum was placed into the vagina for visualization of the cervix. A single-tooth tenaculum was placed on the anterior lip of the cervix for traction. A uterine manipulator was placed without difficulty. The speculum and single tooth tenaculum were removed from the vagina. The surgeon's gloves were then changed. Attention was then turned to entry into the abdominal cavity. A 5 mm incision was made in the inferior fold of the umbilicus with an 11 blade. The skin was grasped on either side of the umbilicus and tented up. A Veres needle was placed into the peritoneal cavity, confirmed with a saline drop test. The abdomen was then insufflated with CO2 gas to a pressure of 15 mmHg. A 5 mm Visiport trocar was then placed. An anatomic survey was then performed with findings as indicated above. A second trocar site was created in the LLQ. A 5 mm trocar was placed under direct visualization. A third trocar site was made in the RLQ. An 10 mm trocar was then placed under direct visualization. The patient was placed in Trendelenburg position. At this time, a 5 mm Ligasure was used to excise the right fallopian tube containing the complex mass. An Endo Catch specimen pouch was used to remove the mass through the 10 mm trocar site and was sent to pathology. The abdomen was then copiously irrigated. At this time, all instruments were removed from the abdominal cavity. Hemostasis was noted. García AH was sprayed over the right adnexa. A Alli-Quigley device with 0 Vicryl was used to reapproximate the 10 mm fascial incision. The pneumoperitoneum was released and all trocars were removed atraumatically. The three incisions were then infiltrated with half percent Marcaine. Each incision was then reapproximated with 4-0 Vicryl in a subcuticular fashion, and covered with skin glue. Attention was returned to the vagina. An open-sided speculum was placed in the vagina. The uterine manipulator was removed atraumatically. A single-tooth tenaculum was placed on the anterior lip of the cervix for traction. The cervix was able to accommodate a number 15 Eckert dilator. A sharp curettage was performed, and the curettings were sent to pathology. At this time, all instruments were removed from the vagina atraumatically. The alanis catheter was then removed. At this time the procedure was ended. The patient was placed into the dorsal supine position and extubated without difficulty. She tolerated the procedure well and was subsequently taken to the PACU in stable condition. All instrument, needle and lap counts were correct 2.
--- NOTE | 2018-05-05 12:40 | Post Operative Note ---
Pre-op diagnosis: Right ectopic Post-op diagnosis: same Findings: 1) 12-14 wk sized anteverted uterus 2) Severe adhesive disease between the anterior surface of the uterus and the parietal peritoneum 3) Right ectopic within the right fallopian tube, unruptured 4) Normal appearing ovaries bilaterally Procedure: 1) Laparoscopic right salpingectomy 2) Dilation and Curettage Anesthesia: CHITRA Surgeon: ASHLEY LUO Principal Investigator: NIEVES CORADO Estimated blood loss: 50-100ml (50 mL) Pathology: list (right fallopian tube with ectopic, endometrial curettings) Specimen disposition: to lab Condition: stable Disposition: PACU
[2018-05-05] MEDS: DILAUDID IV PRN ×2 (14:05→14:14)
[2018-05-05] MEDS ORDERED: NEO SYNEPHRINE/NS Syringe(OR USE) IV ONE (15:09)
[2018-05-05] MEDS ORDERED: QUELICIN ONE (15:10)
[2018-05-05] MEDS ORDERED: MOTRIN PO PRN (15:14)
--- NOTE | 2018-05-05 15:57 | Post Anesthesia Evaluation ---
- Post Anesthesia Evaluation Patient Participated: Yes Airway Patent: Yes Stable Respiratory Function: Yes Nausea/Vomiting: No Temp > 96.8F: Yes Pain Manageable: Yes Adequeate Hydration: Yes Anesthesia Complications: No Block Receding Appropriately: Not Applicable Patient on Ventilator: No
[2018-05-05] MEDS: PERCOCET 5/325 PO PRN ×2 (17:45→21:50)
[2018-05-06] MEDS ORDERED: LACTATED RINGERS 1,000 ML IV SCH (03:00)
[2018-05-06] MEDS: PERCOCET 5/325 PO PRN (04:28)
[2018-05-06 07:33] LABS: Hemoglobin 9.7 gm/dl (10.1-14.3)
--- NOTE | 2018-05-06 09:51 | Progress Note ---
Assessment and Plan A: POD#1 s/p Laparoscopic right salpingetomy with excision of ectopic P: Discharge today with incision check with Dr Castaneda in two weeks Subjective - Subjective Date of service: 05/08/18 Principal diagnosis: s/p Laparoscopic right salpingetomy with excision of ectopic Interval history: Pt feels well this morning. No unusual complaints. Patient reports: appetite normal, voiding normally, pain well controlled, flatus , ambulating normally, no bowel movement, no nauseated Objective - Vital Signs Latest vital signs: Vital Signs Temp Pulse Resp BP BP Pulse Ox 05/06/18 08:27 98.2 F 05/06/18 07:38 54 L 18 130/77 97 05/06/18 05:28 16 05/06/18 04:28 16 05/06/18 04:20 98.5 F 65 18 93/60 05/06/18 00:00 98.2 F 88 18 91/58 05/05/18 22:50 18 05/05/18 21:50 16 05/05/18 20:10 98.2 F 60 18 105/67 05/05/18 14:40 97.5 F L 66 18 138/79 99 05/05/18 14:16 52 L 12 97 05/05/18 14:15 57 L 1 L 105/55 96 05/05/18 14:14 14 05/05/18 14:13 14 05/05/18 14:05 16 05/05/18 14:00 52 L 16 115/68 97 05/05/18 13:45 57 L 12 115/77 96 05/05/18 13:30 97.6 F 55 L 14 110/71 96 05/05/18 13:15 58 L 12 123/67 98 05/05/18 13:00 53 L 14 120/68 98 05/05/18 12:45 62 16 114/70 97 05/05/18 12:40 61 22 115/67 95 05/05/18 12:35 67 24 120/52 98 05/05/18 12:32 98.5 F 74 16 134/59 96 Intake and Output 05/05/18 05/06/18 05/06/18 22:59 06:59 14:59 Intake Total 360 240 Output Total 1200 600 Balance -840 -360 Intake: Oral 360 240 Output: Urine 1200 600 Void 900 600 Other: Total, Intake Amount 120 240 Total, Output Amount 600 600 Voiding Method Toilet # Voids 1 Void 2 3 - Exam Breasts: Present: deferred Cardiovascular: Present: Regular rate Lungs: Present: Clear to auscultation Abdomen: Present: soft (obese) Extremities: Present: normal Incision: Present: intact - Labs Labs: Abnormal lab results 05/06/18 05/06/18 05/06/18 Range/Units 06:16 06:16 06:16 Hgb 9.7 L (10.1-14.3) gm/dl Hct 29.0 L D (30.3-42.9) % Creatinine 0.4 L (0.7-1.2) mg/dL HCG, Quant 61613 H (0-4) mIU/mL
--- NOTE | 2018-05-06 09:52 | Discharge Summary ---
Providers - Providers Date of Admission: 05/05/18 13:40 Date of discharge: 05/06/18 Attending physician: ASHLEY CASTANEDA Primary care physician: ST[facility]GER Hospitalization Reason for admission: other (abdominal pain, vaginal bleeding ) Procedure details: Please see operative report. Incision: intact Discharge diagnosis: other (Abdominal pain, Vaginal bleeding, Right ectopic ) Hospital course: The patient presented to the ED with abdominal pain and vaginal bleeding and was found to have a right ectopic . She was treated surgically with Laparoscopic right salpingetomy with excision of ectopic , dilation and curettage which she tolerated well. She was observed in hospital until POD# 1 when she met discharge criteria. She will follow up in the office in two weeks for a postop visit with Dr Castaneda. Condition at discharge: Stable Disposition: DC-01 TO HOME OR SELFCARE - Discharge Diagnoses (1) Abdominal pain Status: Acute Qualifiers: Abdominal location: lower abdomen, unspecified Qualified Code(s): R10.30 - Lower abdominal pain, unspecified (2) Ectopic , tubal Status: Acute Qualifiers: Intrauterine status: without intrauterine Laterality: right Qualified Code(s): O00.101 - Right tubal without intrauterine (3) Vaginal bleeding Status: Acute Plan - Discharge Medications Prescriptions: Ibuprofen [Motrin] 800 mg PO Q8HR PRN #30 tablet PRN Reason: Pain, Moderate (4-6) oxyCODONE /ACETAMINOPHEN [Percocet 5/325] 1 tab PO Q6HR PRN #20 tablet PRN Reason: Pain - Provider Discharge Summary Activity: routine, no sex for 6 weeks, no heavy lifting 4 weeks, no strenuous exercise Diet: routine Instructions: routine Additional instructions: [] Smoking cessation referral if applicable(refer to patient education folder for contact #) [] Refer to [facility] Booklet Call your doctor immediately for: * Fever > 100.5 * Heavy vaginal bleeding ( >1 pad per hour) * Severe persistent headache * Shortness of breath * Reddened, hot, painful area to leg or breast * Drainage or odor from incision. * Keep incision clean and dry at all times and follow doctor's instructions regarding bathing/showering - Follow up plan Follow up: ASHLEY CASTANEDA MD [Staff Physician] - 05/26/18 (please call to schedule postop appt ) Forms: [facility] Discharge Summary
[2018-05-06 11:52] VITALS: BP 110/51
== END 2018-05-06 13:35 | disposition home or self-care (01) ==
LOC: ED 22:59 → 3A 05-05 13:40 → OB 05-05 13:57
PROVIDERS: ADMIT Obstetrics & Gynecology; ATTEND Obstetrics & Gynecology
DX: O00.101 Right tubal pregnancy without intrauterine pregnancy (principal); O46.91 Antepartum hemorrhage, unspecified, first trimester; O09.521 Supervision of elderly multigravida, first trimester; O34.219 Maternal care for unspecified type scar from previous cesarean delivery; O99.211 Obesity complicating pregnancy, first trimester; E66.9 Obesity, unspecified; Z68.36 Body mass index [BMI] 36.0-36.9, adult; Z87.891 Personal history of nicotine dependence; Z3A.10 10 weeks gestation of pregnancy
CPT/HCPCS: 36415; 59151; 59812; 76801; 76817; 80048; 80074; 81001; 82565; 84702; 85014; 85018; 85025; 85610; 85730; 86850; 86900; 86901; 88305; 96374; 99291; G0378; J0330; J1100; J1170; J1885; J2370; J2405; J2704; J2710; J3010; J7030; J7120